=== PATIENT | male | born 1995 | race Caucasian/White ===

== ENCOUNTER 2019-02-11 18:25 | Emergency (ER) | payer BC ==
--- NOTE | 2019-02-11 18:27 | EDPHY ---
H & P Time Seen by Provider: 02/11/19 18:27 Constitutional: Initial Vital Signs Temperature (C) 36.6 C 02/11/19 18:29 Heart Rate 100 02/11/19 18:29 Respiratory Rate 16 02/11/19 18:29 Blood Pressure 149/79 H 02/11/19 18:29 O2 Sat (%) 96 02/11/19 18:29 O2 Delivery Mode Room Air Allergies/Adverse Reactions: latex Allergy (Verified 02/11/19 18:28) Penicillins Allergy (Verified 02/11/19 18:28) Home Medications: Medication Instructions Recorded NK [No Known Home Meds] 02/11/19 Medical Decision Making ED Course/Re-evaluation: CHIEF COMPLAINT: Alcohol intoxication. HISTORY OF PRESENT ILLNESS: The patient is a 23 y/o male arriving via [employer] for alcohol intoxication. The patient is a university student. Patient was found by bystanders to be severely intoxicated in the street. Patient denies coingestion patient denies suicidal or homicidal behavior. No fever, headache, body aches, lightheadedness, chest pain, heart palpitations, shortness of breath, cough, abdominal pain, urinary or bowel complaints, numbness, paresthesias. REVIEW OF SYSTEMS: A comprehensive 10 system review of systems is otherwise negative aside from elements mentioned in the history of present illness and medical decision making. PHYSICAL EXAM: General Appearance: Alert, well hydrated, appropriate, and non-toxic appearing. Head: Atraumatic without scalp tenderness or obvious injury Eyes: Pupils equal, round, reactive to light and accommodation, EOMI, no trauma , no injection. Ears: Clear bilaterally, no perforation, normal landmarks Nose: Atraumatic, no rhinorrhea, clear. Throat: There is no erythema or exudates, no lesions, normal tonsils, mucus membranes moist. Neck: Supple, 2+ carotid upstroke, nontender, no lymphadenopathy. Respiratory: No retractions, no distress, no wheezes, and no accessory muscle use. Lungs are clear to auscultation bilaterally. Cardiovascular: Regular rate and rhythm, no murmurs, rubs, or gallops. Bilateral carotid, radial, dorsalis pedis, and posterior tibial pulses intact. Good capillary refill all extremities. Gastrointestinal: Abdomen is soft, nontender, non-distended, no masses, no rebound, no guarding, no peritoneal signs. Musculoskeletal: Normal active ROM of all extremities, atraumatic. Neurological: Alert, appropriate, and interactive. The patient has normal DTRs and non-focal cranial nerves, motor, sensory, and cerebellar exam. Skin: No rashes, good turgor, no nodules on palpation. PAST MEDICAL HISTORY: None PAST SURGICAL HISTORY: None SOCIAL HISTORY: Friend at bedside, student, single, denies tobacco or drug use , drinks alcohol occasionally DIAGNOSTICS/PROCEDURES/CRITICAL CARE TIME: Not indicated. DIFFERENTIAL DIAGNOSIS: The differential diagnosis for the patient's altered mental status included but was not limited to hypoglycemia, infectious process, electrolyte abnormality, head injury, neurologic process, anemia, cardiac process, and intoxicants. MEDICAL DECISION MAKING: The patient is a 23 y/o male arriving via [employer] for alcohol intoxication. The patient is intoxicated, but ambulatory and clinically sober. 1833: I serially questioned the patient and the patient's story given initially has not changed. The patient still denies any trauma, any head injury, and any illicit drug use. At this point, the patient is walking the department freely and is clinically sober. We're discharging the patient to the [facility] with [employer] in stable condition. Departure - Departure Disposition: Home, Routine, Self-Care Clinical Impression: Alcoholic intoxication Qualifiers: Complication of substance-induced condition: uncomplicated Qualified Code(s): F10.920 - Alcohol use, unspecified with intoxication, uncomplicated Condition: Good Instructions: Alcohol Intoxication (ED) Additional Instructions: 1. Please refrain from abusing alcohol. 2. Return to the emergency department immediately for fever, vomiting, confusion , headache, abdominal pain or other worsening of condition. 3. Followup with your primary care physician within 72 hours for reevaluation. Referrals: [facility] Detox 24 Hours [Outside] - As per Instructions Report Scribed for: Herbert Manjarrez Report Scribed by: Sania Lauren Date of Report: 02/11/19 Time of Report: 18:33
[2019-02-11 18:31] VITALS: BP 149/79
== END 2019-02-11 18:35 | disposition home or self-care (01) ==
DX: F10.920 Alcohol use, unspecified with intoxication, uncomplicated (principal)